=== PATIENT | female | born 1970 | race Two or more races ===

== ENCOUNTER 2019-07-03 20:46 | Emergency (ER) | payer OTHER ==
[2019-07-03] MEDS ORDERED: ONDANSETRON HCL INJ/PF 4 MG/2 ML SDV IV ONE (21:25)
[2019-07-03] MEDS ORDERED: FENTANYL CITRATE INJ/PF 100 MCG/2 ML AMPUL IV ONE (21:25)
[2019-07-03] MEDS ORDERED: DIPH/PERTUSS(ACELL)/TETANUS VAC/PF 0.5 ML SYR (>=10YO) IM ONE (21:48)
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
[2019-07-03] MEDS ORDERED: IBUPROFEN 800 MG TABLET PO ONE (21:54)
[2019-07-03] MEDS ORDERED: HYDROCODONE/ACETAMINOPHEN 5-325 MG (6 TAB/ER DISP) PO PRN (21:54)
[2019-07-03 22:51] VITALS: BP 137/86
== END 2019-07-03 22:50 | disposition home or self-care (01) ==
LOC: ER 20:46
DX: T21.12XA Burn of first degree of abdominal wall, initial encounter (principal); F17.210 Nicotine dependence, cigarettes, uncomplicated; X10.2XXA Contact with fats and cooking oils, initial encounter; Y93.G3 Activity, cooking and baking; Y92.009 Unspecified place in unspecified non-institutional (private) residence as the place of occurrence of the external cause; E78.00 Pure hypercholesterolemia, unspecified; Z23 Encounter for immunization
CPT/HCPCS: 90471; 90715; 99284